=== PATIENT | female | born 1990 | race Caucasian/White ===

== ENCOUNTER → 2016-10-07 | Outpatient (CLI) | payer SELFPAY ==
--- NOTE | 2016-10-07 17:46 | RADIOLOGY REPORT (SQ) ---
EXAM DESCRIPTION: U/S [id number] TRNABD 1GES W/ODOP COMPLETED DATE/TIME: 10/07/2016 1:36 pm REASON FOR STUDY: ENCOUNTER FOR SUPERVISION OF OTHER NORMAL , 1ST TRIMESTER (Z34.81) Z34.81 ENCOUNTER FOR SUPRVSN OF NORMAL , FIRST TRIM COMPARISON: None. TECHNIQUE: Transabdominal static and realtime grayscale images acquired of the pelvis. Additional se lected spectral and color Doppler images recorded. All images stored on PACs. [facility] Not [facility]. Last menses 07/27/2016 LIMITATIONS: None. FINDINGS: FETUS: Living intrauterine . EGA: 11 weeks 1 day by crown-rump length GARLAND: 04/27/2017 FHR: 169 beats per minute. SUBCHORIONIC BLEED: No SIZE OF BLEED: Not applicable. UTERUS: No masses. No anomalies. Uterus is 16 x 10 x 8 cm in size CERVICAL LENGTH: 4 cm Closed. RIGHT ADNEXA: Normal ovary with normal vascular flow. Right ovary 2.3 x 1.6 x 1.6 cm in size No adnexal free fluid. No adnexal masses. LEFT ADNEXA: Normal ovary with normal vascular flow. Left ovary 3.3 x 2.5 x 2.1 cm in size with a 1. 8 cm cyst, possibly the corpus luteum No adnexal free fluid. No adnexal masses. FREE FLUID: None. OTHER: No other significant finding. IMPRESSION: LIVING INTRAUTERINE . EGA 11 weeks 1 day, cardiac activity 169 beats per minute Trimester of : First - 0 to 13 weeks. TECHNICAL DOCUMENTATION: JOB ID: [id number] [employer]- All Rights Reserved
== END ==
LOC: RAD 12:51
PROVIDERS: ATTEND Nurse Practitioner Women's Health
DX: Z34.81 Encounter for supervision of other normal pregnancy, first trimester (principal)
CPT/HCPCS: 76801

== ENCOUNTER → 2016-12-16 | Outpatient (CLI) | payer SELFPAY ==
--- NOTE | 2016-12-16 16:53 | RADIOLOGY REPORT (SQ) ---
EXAM DESCRIPTION: U/S OB 14+ TRNABD 1GES W/O DOP COMPLETED DATE/TIME: 12/16/2016 4:43 pm REASON FOR STUDY: ENCOUNTER FOR SUPERVISION OF ORTHER NOMAL , SECOND TRIMESTER Z34.82 ENCO UNTER FOR SUPRVSN OF NORMAL , SECOND TRI COMPARISON: 10/07/2016. TECHNIQUE: Static and Dynamic grayscale imaging performed of gravid uterus using transabdominal appr oach. Additional selected color Doppler and spectral images recorded. All stored on PACS. LIMITATIONS: None. FINDINGS: EGA: 21 week 3 day. GARLAND: 04/25/2017. EFW: 431 g. grams YENNY: Adequate amount. PLACENTA: Anterior. GRADE: I PRESENTATION: Cephalic. ANATOMY: HEART RATE: 128 beats per minute. FOUR CHAMBER HEART: Limited visualization. THREE VESSEL CORD: Yes. CORD INSERTION: Visualized. KIDNEYS AND BLADDER: Visualized. Appear normal. STOMACH: Visualized. Appears normal. SPINE: Normal as visualized. BRAIN AND LATERAL VENTRICLES: Visualized. Appear normal. OTHER: No other significant finding. Limited visualization of the upper extremities. MATERNAL ADNEXA: Maternal ovaries not visualized. CERVICAL LENGTH: Not adequately imaged. OTHER: No other significant finding. IMPRESSION: LIVING INTRAUTERINE . ESTIMATED GESTATIONAL AGE 21 WEEK 3 DAY. NO VISUALIZED ANOMALIES. Trimester of : Second trimester - 13 weeks 1 day to 27 weeks 6 days. TECHNICAL DOCUMENTATION: JOB ID: [id number] [employer]- All Rights Reserved
== END ==
LOC: RAD 15:50
PROVIDERS: ATTEND Nurse Practitioner Women's Health
DX: Z34.82 Encounter for supervision of other normal pregnancy, second trimester (principal)
CPT/HCPCS: 76805

== ENCOUNTER → 2017-02-11 | Outpatient (CLI) | payer SELFPAY ==
--- NOTE | 2017-02-11 14:48 | RADIOLOGY REPORT (SQ) ---
EXAM DESCRIPTION: U/S OB 14+ TRNABD 1GES W/O DOP COMPLETED DATE/TIME: 02/11/2017 2:01 pm REASON FOR STUDY: ENCOUNTER FOR SUPERVISION OF OTHER NORMAL , SECOND TRIMESTER Z34.82 ENCO UNTER FOR SUPRVSN OF NORMAL , SECOND TRI COMPARISON: 12/16/2016. TECHNIQUE: Static and Dynamic grayscale imaging performed of gravid uterus using transabdominal appr oach. Additional selected color Doppler and spectral images recorded. All stored on PACS. LIMITATIONS: None. FINDINGS: EGA: 31 week. GARLAND: 04/15/2017. EFW: 1,487 grams PERCENTILE: 70%. YENNY: Largest pocket 4.2 cm. PLACENTA: Anterior. GRADE: I PRESENTATION: Cephalic. ANATOMY: HEART RATE: 132 beats per minute. FOUR CHAMBER HEART: Visualized. THREE VESSEL CORD: Yes. CORD INSERTION: Visualized. KIDNEYS AND BLADDER: Visualized. Appear normal. STOMACH: Visualized. Appears normal. SPINE: Normal as visualized. BRAIN AND LATERAL VENTRICLES: Visualized. Appear normal. OTHER: No other significant finding. MATERNAL ADNEXA: Maternal ovaries not visualized. CERVICAL LENGTH: There is funneling at the internal os, measuring 1.8 by 5.9 cm. Distally the cervix is closed. The length of the closed segment of the cervix is 5.3 cm. OTHER: No other significant finding. IMPRESSION: LIVING INTRAUTERINE . ESTIMATED GESTATIONAL AGE 31 WEEK. NO VISUALIZED ANOMALIES. THERE IS FUNNELING AT THE INTERNAL OS DESCRIBED ABOVE. Trimester of : Third trimester - 28 weeks to delivery. TECHNICAL DOCUMENTATION: JOB ID: [id number] [employer]- All Rights Reserved
== END ==
LOC: RAD 12:50
PROVIDERS: ATTEND Nurse Practitioner Women's Health
DX: Z34.83 Encounter for supervision of other normal pregnancy, third trimester (principal)
CPT/HCPCS: 76805

== ENCOUNTER 2017-03-13 16:41 | Outpatient (CLI) | payer SELFPAY | END 2017-03-13 16:59 | disposition home or self-care (01) | LOC: LC 16:41 | PROVIDERS: ATTEND Obstetrics & Gynecology Gynecology | PROC: 4A1HXCZ Monitoring of Products of Conception, Cardiac Rate, External Approach (ICD-10-PCS; principal; 2017-03-13) | DX: O47.03 False labor before 37 completed weeks of gestation, third trimester (principal); Z3A.32 32 weeks gestation of pregnancy | CPT/HCPCS: 59025 ==

== ENCOUNTER 2017-03-23 09:44 | Outpatient (CLI) | payer SELFPAY ==
--- NOTE | 2017-03-23 09:46 | Non Stress Test Report ---
Non Stress Test Datetime Report Generated by CPN: 03/23/2017 09:46 DEMOGRAPHIC EGA NST: 32.4 INDICATION Indication for Study: Ordered by Provider VITAL SIGNS Temperature - NST: 98.0 Pulse - NST: 65 RESP - NST: 14 NBPSYS NST: 90 NBPDIA NST: 51 MONITORING Monitor Explained: Monitor Explained; Test Explained; Patient Verbalized Understanding Time on Monitor: 03/13/2017 15:58 Time off Monitor: 03/13/2017 16:59 NST Duration: 61 NST INTERVENTIONS NST Interventions: PO Hydration Physician Notified NST: J Heredia BABY A: [id number] BABY A Movement : Present Contraction Frequency : none FHR Baseline : 120 Accelerations : 15X15 Decelerations : None Variability : Moderate 6-25bpm NST Review: Meets Criteria for Reactive NST NST Review and Verified By : Timbo Marino RNC NST Results: Reactive NST REPORT Report Trigger: Send Report
[2017-03-23 10:36] LABS: APPEARANCE,URINE CLEAR; BILIRUBIN,URINE NEGATIVE (NEGATIVE); COLOR,URINE YELLOW; GLUCOSE, URINE NEGATIVE (NEGATIVE); KETONES,URINE NEGATIVE (NEGATIVE); LEUKOCYTE ESTERASE,URINE NEGATIVE (NEGATIVE); NITRITE,URINE NEGATIVE (NEGATIVE); PROTEIN,URINE NEGATIVE (NEGATIVE); URINE SPECIFIC GRAVITY 1.004; UROBILINOGEN,URINE NEGATIVE mg/dL (<2.0)
[2017-03-23 10:51] LABS: URINE AMPHETAMINES SCREEN NEGATIVE; URINE BARBITURATES SCREEN NEGATIVE; URINE BENZODIAZEPINES SCREEN NEGATIVE; URINE COCAINE SCREEN NEGATIVE; URINE MARIJUANA (THC) SCREEN NEGATIVE; URINE METHADONE SCREEN NEGATIVE; URINE PHENCYCLIDINE SCREEN NEGATIVE
== END 2017-03-23 10:46 | disposition home or self-care (01) ==
LOC: LC 09:44
PROVIDERS: ATTEND Obstetrics & Gynecology
PROC: 4A1HXCZ Monitoring of Products of Conception, Cardiac Rate, External Approach (ICD-10-PCS; principal; 2017-03-23)
DX: O47.03 False labor before 37 completed weeks of gestation, third trimester (principal); Z3A.34 34 weeks gestation of pregnancy; Z91.81 History of falling
CPT/HCPCS: 59025; 80307; 81001

== ENCOUNTER → 2017-04-09 | Outpatient (CLI) | payer SELFPAY ==
--- NOTE | 2017-04-09 16:21 | RADIOLOGY REPORT (SQ) ---
EXAM DESCRIPTION: U/S OB 14+ TRNABD 1GES W/O DOP COMPLETED DATE/TIME: 04/09/2017 3:40 pm REASON FOR STUDY: Z34.83 ENCOUNTER FOR SUPRVSN OF NORMAL , THIRD TRIMESTER Z34.83 ENCOUNTE R FOR SUPRVSN OF NORMAL , THIRD TRIM COMPARISON: OB ultrasound 02/11/2017 TECHNIQUE: Limited transabdominal grayscale ultrasound for evaluation of specific requested obstetri jorge parameters. LIMITATIONS: None. FINDINGS: CERVICAL LENGTH: Not visualized YENNY: 9.1 cm. FHR: 136 beats per minute. PRESENTATION: Cephalic. OTHER: Estimated weight 3575 g, 87th percentile. Estimated gestational age by measurements is 37 weeks 6 days, due date 04/24/2017 IMPRESSION: LIMITED OBSTETRICAL ULTRASOUND WITH MEASURED PARAMETERS DELINEATED ABOVE. Trimester of : Third trimester - 28 weeks to delivery. TECHNICAL DOCUMENTATION: JOB ID: [id number] [employer]- All Rights Reserved
== END ==
LOC: RAD 15:18
PROVIDERS: ATTEND Nurse Practitioner Women's Health
DX: Z34.83 Encounter for supervision of other normal pregnancy, third trimester (principal)
CPT/HCPCS: 76805

== ENCOUNTER 2017-05-01 09:26 | Inpatient (IN) | payer SELFPAY ==
--- NOTE | 2017-05-01 09:28 | Non Stress Test Report ---
Non Stress Test Datetime Report Generated by CPN: 05/01/2017 09:28 DEMOGRAPHIC EGA NST: 34.0 INDICATION Indication for Study: Other Indication for Study (NST) Other: Fall MONITORING Monitor Explained: Monitor Explained; Test Explained; Patient Verbalized Understanding Time on Monitor: 03/23/2017 10:06 Time off Monitor: 03/23/2017 10:38 NST Duration: 32 NST INTERVENTIONS NST Interventions: None Physician Notified NST: H BRIGITTE, CNM BABY A: [id number] BABY A Movement : Present Contraction Frequency : 0 FHR Baseline : 120 Accelerations : 15X15 Variability : Moderate 6-25bpm NST Review: Meets Criteria for Reactive NST NST Review and Verified By : LOUIE PEREZLUND, RN NST Results: Reactive NST REPORT Report Trigger: Send Report
[2017-05-01 10:06] LABS: APPEARANCE,URINE SLIGHTLY-CLOUDY; BILIRUBIN,URINE NEGATIVE (NEGATIVE); COLOR,URINE YELLOW; GLUCOSE, URINE NEGATIVE (NEGATIVE); KETONES,URINE 20 mg/dL (NEGATIVE); LEUKOCYTE ESTERASE,URINE NEGATIVE (NEGATIVE); NITRITE,URINE NEGATIVE (NEGATIVE); PROTEIN,URINE NEGATIVE (NEGATIVE); URINE SPECIFIC GRAVITY 1.016; UROBILINOGEN,URINE NEGATIVE mg/dL (<2.0)
[2017-05-01 10:24] LABS: URINE AMPHETAMINES SCREEN NEGATIVE; URINE BARBITURATES SCREEN NEGATIVE; URINE BENZODIAZEPINES SCREEN NEGATIVE; URINE COCAINE SCREEN NEGATIVE; URINE MARIJUANA (THC) SCREEN NEGATIVE; URINE METHADONE SCREEN NEGATIVE; URINE PHENCYCLIDINE SCREEN NEGATIVE
[2017-05-01] MEDS ORDERED: RINGERS SOLUTION,LACTATED 1,000 ML IV ONE (10:37)
[2017-05-01] MEDS ORDERED: RINGERS SOLUTION,LACTATED 1,000 ML IV PRN (10:37)
--- NOTE | 2017-05-01 11:53 | Admission Physical ---
Datetime Report Generated by CPN: 05/01/2017 11:53 CURRENT ADMISSION Chief Complaint: Uterine Contractions; Suspected Ruptured Membranes Indication for Induction: Not Applicable Admit Impression : Term, Intrauterine ; Active Labor; Ruptured Membranes Admit Plan: Admit to Unit; Initiate Labor Protocol ALLERGIES Medication Allergies: No Known Allergies (05/01/2017) PHYSICAL EXAM General: Normal HEENT: Normal Neurologic: Normal Thyroid: Deferred Heart: Normal Lungs: Normal Breast: Deferred Back: Normal Abdomen: Normal Genitourinary Exam: Normal Extremities: Normal DTRs: Normal Pelvic Type: Adequate Vital Signs: Reviewed VAGINAL EXAM Dilatation: 3 Effacement: 60 Station: -3 Contraction Comments: irreg MEMBRANES Membranes: Ruptured Amniotic Fluid Color: Clear FETUS A EGA: 39.4 Monitoring: External US FHR- Baseline: 120 Variability: Moderate 6-25bpm Accelerations: 15X15 Decelerations: None FHR Category: Category I Admit Comment: 26yo at 39+4ega with pelvis proven to 9#11oz. EFW approx 2wks ago 8#. Pt reports SROM at 0330 this am with clear fluid. Continued leakage of fluid with gross SROM - pooling and fluid with positive valsalva. + blood unable to perform amnisure. Fern negative. Due to copious fluid continually coming from cervix do not agree with fern negative. Admit for SROM/PROM. Will begin pitocin when arrives. GBS negative. INFORMED CONSENT Informed Consent Obtained: Vaginal Delivery; Risks, Benefits and Alternatives Discussed Signature: with User ID: [email or web address]
[2017-05-01 11:54] LABS: ABSOLUTE LYMPHOCYTES (AUTO) 1.5 10^3/uL (0.5-4.7); ABSOLUTE MONOCYTES (AUTO) 0.6 10^3/uL (0.1-1.4); ABSOLUTE NEUT (AUTO) 6.2 10^3/uL (1.7-8.2); BASOPHILS % (AUTO) 0.2 % (0-2); EOSINOPHILS % (AUTO) 0.5 % (0-6); HEMOGLOBIN 12.4 g/dL (12.0-15.5); LYMPHOCYTES % (AUTO) 18.3 % (13-45); MEAN CORPUSCULAR HEMOGLOBIN 30.4 pg (27.0-33.4); MEAN CORPUSCULAR HGB CONC 34.6 g/dL (32.0-36.0); MEAN CORPUSCULAR VOLUME 88 fl (80-97); MONOCYTES % (AUTO) 6.7 % (3-13); PLATELET COUNT 133 10^3/uL (150-450); RED BLOOD COUNT 4.09 10^6/uL (3.72-5.28); RED CELL DISTRIBUTION WIDTH 13.4 % (11.5-14.0); SEGMENTED NEUTROPHILS % (AUTO) 74.3 % (42-78); TOTAL CELLS COUNTED % (AUTO) 100 %; WHITE BLOOD COUNT 8.3 10^3/uL (4.0-10.5)
[2017-05-01] MEDS ORDERED: OXYTOCIN/NORMAL SALINE 20 UNIT/1,000 ML RTUINJ ONE (12:39)
[2017-05-01] MEDS ORDERED: OXYTOCIN/NORMAL SALINE 20 UNIT/1,000 ML RTUINJ IV PRN ×2 (12:52→16:36)
--- NOTE | 2017-05-01 13:39 | Admission Physical ---
Datetime Report Generated by CPN: 05/01/2017 13:39 CURRENT ADMISSION Admit Date/Time: 05/01/2017 10:35 Admit Date/Time: 05/01/2017 09:26 Admit Date/Time: 03/23/2017 09:44 Admit Date/Time: 03/13/2017 16:41 Admit Date/Time: 03/13/2017 00:00 Chief Complaint: Uterine Contractions; Suspected Ruptured Membranes Indication for Induction: Not Applicable Admit Impression : Term, Intrauterine ; Active Labor; Ruptured Membranes Admit Plan: Admit to Unit; Initiate Labor Protocol ALLERGIES Medication Allergies: No Medication Allergies: No Known Allergies (05/01/2017) Medication Allergies: No Known Allergies (03/23/2017) Medication Allergies: No Known Allergies (09/16/2013) Latex: No Latex Allergies OBSTETRICAL HISTORY EDC: 05/04/2017 00:00 : 4 Para: 2 Term: 2 : 0 SAB: 1 IAB: 0 Ectopic: 0 Livin Cesareans: 0 VBACs: 0 Multiple Births: 0 Gestational Diabetes: No Rh Sensitization: No Incompetent Cervix: No KENYON: No Infertility: No ART Treatment: No Uterine Anomaly: No IUGR: No Hx Previous C/S: No Macrosomia: No Hx Loss/Stillborn: No PIH: No Hx : No Depression/PP Depression: No PTL/PROM: No Post Hemorrhage: No Current Procedures: Ultrasound Obstetrical History Comments: 2009 baby boy 40 weeks 2013 baby boy 41 weeks 2015 SAB 10 weeks 2017 current SEE RECORDS Alcohol: No Marijuana : No Cocaine: No Other Illicit Drugs: No Cigarettes: Never Smoker. [id number] MEDICAL HISTORY Diabetes: No Blood Transfusion: No Pulmonary Disease (Asthma, TB): No Breast Disease: No Hypertension: No Hand Molder Surgery: No Heart Disease: No Hosp/Surgery: Yes Autoimmune Disorder: No Anesthetic Complications: No Kidney Disease: No Abnormal Pap Smear: No Neuro/Epilepsy: No Psychiatric Disorders: No Other Medical Diseases: No Hepatitis/Liver Disease: No Significant Family History: No Varicosities/Phlebitis: No Trauma/Violence : No Thyroid Dysfunction: No Medical History Comments: 1997 right arm surgery, childbirth INFECTIOUS HISTORY Gonorrhea: No Genital Herpes: No Chlamydia: No Tuberculosis: No Syphilis: No Hepatitis: No HIV/AIDS Exposure: No Rash or Viral Illness: No HPV: No PHYSICAL EXAM General: Normal HEENT: Normal Neurologic: Normal Thyroid: Deferred Heart: Normal Lungs: Normal Breast: Deferred Back: Normal Abdomen: Normal Genitourinary Exam: Normal Extremities: Normal DTRs: Normal Pelvic Type: Adequate Vital Signs: Reviewed VAGINAL EXAM Dilatation: 3 Effacement: 60 Station: -3 Contraction Comments: irreg MEMBRANES Membranes: Ruptured Amniotic Fluid Color: Clear FETUS A EGA: 39.4 Monitoring: External US FHR- Baseline: 120 Variability: Moderate 6-25bpm Accelerations: 15X15 Decelerations: None FHR Category: Category I Admit Comment: 26yo at 39+4ega with pelvis proven to 9#11oz. EFW approx 2wks ago 8#. Pt reports SROM at 0330 this am with clear fluid. Continued leakage of fluid with gross SROM - pooling and fluid with positive valsalva. + blood unable to perform amnisure. Fern negative. Due to copious fluid continually coming from cervix do not agree with fern negative. Admit for SROM/PROM. Will begin pitocin when arrives. GBS negative. PLANS FOR LABOR AND DELIVERY Labor and Delivery: None Pain Management: Natural Feeding Preference: Breast Benefit of Breast Feed Discussed: Yes INFORMED CONSENT Informed Consent Obtained: Vaginal Delivery; Risks, Benefits and Alternatives Discussed Signature: with User ID: [email or web address]
[2017-05-01] MEDS ORDERED: EPHEDRINE SULFATE INJ 50 MG/1 ML AMPULE ONE (13:57)
[2017-05-01] MEDS ORDERED: FENTANYL CITRATE INJ/PF 100 MCG/2 ML AMPUL ONE (13:57)
[2017-05-01] MEDS ORDERED: PHENYLEPHRINE HCL INJ/PF 10 MG/1 ML SDV ONE (13:58)
[2017-05-01] MEDS ORDERED: LIDOCAINE 1% INJ-PF (10 MG/ML) 30 ML SDV ONE (13:58)
[2017-05-01] MEDS ORDERED: MISOPROSTOL 0.2 MG TABLET ONE (13:58)
[2017-05-01] MEDS ORDERED: BUPIVACAINE HCL 0.25 % INJ/PF (2.5 MG/1 ML) 30 ML VIAL ONE (13:58)
[2017-05-01] MEDS ORDERED: FENTANYL/BUPIVACAINE/NS/PF 200 MCG/100 ML RTUINJ EPI ONE (13:58)
--- NOTE | 2017-05-01 15:36 | L&D Progress Notes ---
PROGRESS NOTES Datetime Report Generated by CPN: 05/01/2017 15:36 PROGRESS NOTE Impression: Normal Progression of Labor Plan: Continue Present Management; Augmentation Informed Consent Obtained: Vaginal Delivery; Risks, Benefits and Alternatives Discussed Comment: comfortable with epidural. making appropriate cervical change. pitocin infusing at 4mu/min. continue current plan of care, anticipate VAGINAL EXAM Dilatation: 5 Dilatation: 3 Effacement: 80 Effacement: 60 Station: -2 Station: -3 Contractions: Q3 mins Contractions: irreg MEMBRANES Membranes: Ruptured Membranes: Ruptured Amniotic Fluid Color: Clear Amniotic Fluid Color: Clear FETUS A FHR - Baseline: 120 Monitoring: External US Variability: Moderate 6-25bpm Accelerations: 15X15 Decelerations: Early SIGNATURE SIGNATURE: ,[id number];[id number] SIGNATURE: ,[id number];14,[id number] SIGNATURE: ,[id number] SIGNATURE: ,[id number] Assignment: Myrtle Peres MD Signature: with User ID: [email or web address] : with User ID: [email or web address]
[2017-05-01] MEDS ORDERED: BENZOCAINE/MENTHOL AEROSOL SPRAY 56 ML TOP PRN (16:36)
[2017-05-01] MEDS ORDERED: DIPH/PERTUSS(ACELL)/TETANUS VAC/PF 0.5 ML SYR (>=10YO) IM PRN (16:36)
[2017-05-01] MEDS ORDERED: DIBUCAINE 1% OINTMENT 28 GM TP PRN (16:36)
[2017-05-01] MEDS ORDERED: ZOLPIDEM TARTRATE 5 MG TABLET PO PRN (16:36)
[2017-05-01] MEDS ORDERED: MEASLES,MUMPS&RUBELLA VACC/PF 0.5 ML VIAL SUBCUT PRN (16:36)
[2017-05-01] MEDS ORDERED: ACETAMINOPHEN WITH CODEINE #3 TABLET PO PRN ×2 (16:36)
[2017-05-01] MEDS: FERROUS SULFATE 325 MG TABLET PO SCH (18:00)
[2017-05-01] MEDS: DOCUSATE SODIUM 100 MG CAPSULE PO SCH (18:00)
--- NOTE | 2017-05-01 18:54 | Delivery Summary ---
Del Sum A-C Datetime Report Generated by CPN: 05/01/2017 18:54 DELIVERY PERSONNEL DELIVERY PERSONNEL: [id number] Delivery Doctor:: Leni Ramirez CNM Nurse Drill Foreman Certified:: Leni Ramirez CNM Labor and Delivery Nurse:: CLARICE Landry Labor and Delivery Nurse:: CLARICE Hancock Nursery Nurse:: Edyta Zamora RN MATERNAL INFORMATION Delivery Anesthesia: Epidural Medications After Delivery: Pitocin Bolus-Please Comment Meds After Delivery Comment: Pitocin 20 units in 1000 ml nss open for bolus Estimated Blood Loss (ml): 100 Maternal Complications: None Provider Comments: of viable male , head and posterior arm delivered without difficulty, shoulders and body delivered with ease, with spontaneous cry and respirations, to matneral abdomen, skin to skin, cord clamped x2 after 2 min delay, cut free by pts , spontaneous delivery of placenta appears intact, via darby mechanism, 3VC, vagina and perineum appears intact, 3vc, hemostasis acheived with external fundal massage and IV pitocin. Mother and infant in stable condition, routine pp care. LABOR SUMMARY EDC: 05/04/2017 00:00 No. Babies in Womb: 1 Attempted: No Labor Anesthesia: Epidural LABOR INFORMATION Reason for Induction: Not Applicable Onset of Labor: 05/01/2017 14:52 Complete Dilatation: 05/01/2017 16:09 Oxytocin: Augmentation Group B Beta Strep: negative Steroids Given: None Reason Steroids Not Administered: Not Applicable MEMBRANES Membranes Rupture Method: Spontaneous Rupture of Membranes: 05/01/2017 02:30 Length of Rupture (hr): 13.72 Amniotic Fluid Color: Clear Amniotic Fluid Amount: Small Amniotic Fluid Odor: Normal STAGES OF LABOR Stage 1 hr: 1 Stage 1 min: 17 Stage 2 hr: 0 Stage 2 min: 4 Stage 3 hr: 0 Stage 3 min: 4 Total Time in Labor hr: 1 Total Time in Labor min: 25 VAGINAL DELIVERY Episiotomy: None Laceration #1: None Laceration Extension #1: N/A Laceration Repair: Not Applicable Sponge Count Correct: N/A Sharps Count Correct: N/A CSECTION DELIVERY Primary Indication: N/A Secondary Indication: N/A CSection Incidence: N/A Labor: N/A Elective: N/A CSection Incision: N/A BABY A INFORMATION Delivery Date/Time: 05/01/2017 16:13 Method of Delivery: Vaginal Born in Route : No : N/A Forceps: N/A Vacuum Extraction: N/A Shoulder Dystocia : No PRESENTATION/POSITION BABY A Presentation: Cephalic Cephalic Presentation: Vertex Vertex Position: Left Occipital Anterior Breech Presentation: N/A PLACENTA INFORMATION BABY A Placenta Delivery Time : 05/01/2017 16:17 Placenta Method of Delivery: Spontaneous Placenta Status: Delivered SCORES BABY A Heart Rate 1 min: >100 bpm Resp Effort 1 min: Good Cry Reflex Irritability 1 min: Cough or Sneeze or Pulls Away Muscle Tone 1 min: Active Motion Color 1 min: Blue/Pale Resuscitation Effort 1 min: Tactile Stimulation SCORE 1 MIN: 8 Heart Rate 5 min: >100 bpm Resp Effort 5 min: Good Cry Reflex Irritability 5 min: Cough or Sneeze or Pulls Away Muscle Tone 5 min: Active Motion Color 5 min: Body [place], Extremities Blue Resuscitation Effort 5 min: N/A SCORE 5 MIN: 9 Resuscitation Effort 10 min: N/A INFANT INFORMATION BABY A Gestational Age at Delivery: 39.4 Gestational Status: Full Term- 39- 40.6 Weeks Infant Outcome : Liveborn Condition : Stable Sex: Male IDENTIFICATION BABY A Infant Verification Date/Time: 05/01/2017 16:52 ID Band Number: [id number] Mother's Name Verified: Yes Infant RN Verifying : K Jose RNC/A Sun RN WEIGHT/LENGTH BABY A Infant Birthweight (gm): 4285 Infant Weight (lb): 9 Weight (oz): 7 Length (in): 21.00 Infant Length (cm): 53.34 CORD INFORMATION BABY A No. Cord Vessels: 3 Nuchal Cord : N/A Cord Blood Taken: Yes-For Eval (Mom's Blood Type - or O+) Suction: None ASSESSMENT BABY A Complications: None Physical Findings at Delivery: Within Normal Limits Respirations: Appears Normal Skin to Skin: Yes Home Agent/ALS Called : No Care By: Edyta Zamora RNC Transferred To: Remains with Mother BABY B INFORMATION : N/A SIGNATURES Assignment: Myrtle Peres MD Signature: with User ID: [email or web address] : with User ID: [email or web address] : I was personally available for consultation and serving as supervising physician for the MLP.
[2017-05-01] MEDS: IBUPROFEN 800 MG TABLET PO SCH (22:49)
[2017-05-02] MEDS: IBUPROFEN 800 MG TABLET PO SCH ×3 (06:53→22:55)
[2017-05-02 08:41] LABS: HEMATOCRIT 34.5 % (36.0-47.0); HEMOGLOBIN 11.8 g/dL (12.0-15.5); MEAN CORPUSCULAR HEMOGLOBIN 30.4 pg (27.0-33.4); MEAN CORPUSCULAR HGB CONC 34.3 g/dL (32.0-36.0); MEAN CORPUSCULAR VOLUME 89 fl (80-97); PLATELET COUNT 122 10^3/uL (150-450); RED BLOOD COUNT 3.89 10^6/uL (3.72-5.28); RED CELL DISTRIBUTION WIDTH 13.8 % (11.5-14.0); WHITE BLOOD COUNT 9.2 10^3/uL (4.0-10.5)
[2017-05-02] MEDS: SENNOSIDES/DOCUSATE 8.6-50 MG 1 EACH TABLET PO SCH (09:34)
[2017-05-02] MEDS: PRENATAL VITAMIN W DHA CAPSULE PO SCH (09:34)
[2017-05-02] MEDS: DOCUSATE SODIUM 100 MG CAPSULE PO SCH ×2 (09:34→17:06)
[2017-05-02] MEDS: FERROUS SULFATE 325 MG TABLET PO SCH ×2 (09:34→17:06)
--- NOTE | 2017-05-02 11:10 | PDOC PROGRESS REPORT ---
Subjective-OB Progress Note for:: 05/02/17 Subjective: tolerating diet without nausea, bleeding slowing, pain controlled with current meds. no needs expressed Physical Exam (OB) Vital Signs: Temp Pulse Resp BP Pulse Ox 97.7 F 58 L 16 115/72 99 05/02/17 07:38 05/02/17 07:38 05/02/17 07:38 05/02/17 07:38 05/02/17 07:38 Intake & Output 05/01/17 05/02/17 05/03/17 06:59 06:59 06:59 Intake Total 240 Balance 240 Weight 97.3 kg - Abdomen Description: Soft Hernia Present: No Fundal Description: Firm, Midline Fundal Height: u/u - u/2 - Abdominal Tenderness: Nontender - Extremities Lower extremities: Claudia's sign - neg Calf: Nontender Objective-Diagnostic Laboratory: 05/02/17 07:30 05/01/17 05/01/17 05/02/17 11:29 11:29 07:30 WBC 8.3 9.2 RBC 4.09 3.89 Hgb 12.4 11.8 L Hct 36.0 34.5 L MCV 88 89 MCH 30.4 30.4 MCHC 34.6 34.3 RDW 13.4 13.8 Plt Count 133 L 122 L Seg Neutrophils % 74.3 Lymphocytes % 18.3 Monocytes % 6.7 Eosinophils % 0.5 Basophils % 0.2 Absolute Neutrophils 6.2 Absolute Lymphocytes 1.5 Absolute Monocytes 0.6 Absolute Eosinophils 0.0 Absolute Basophils 0.0 Blood Type O POSITIVE Antibody Screen NEGATIVE Assessment and Plan(PN) - Assessment and Plan (1) Delivery normal Is this a current diagnosis for this admission?: Yes - Time Spent with Patient Time with patient: Less than 15 minutes Medications reviewed and adjusted accordingly: Yes - Disposition Anticipated Discharge: Home Within: within 24 hours
[2017-05-03] MEDS: IBUPROFEN 800 MG TABLET PO SCH ×3 (06:00→22:10)
[2017-05-03] MEDS: PRENATAL VITAMIN W DHA CAPSULE PO SCH (09:09)
[2017-05-03] MEDS: SENNOSIDES/DOCUSATE 8.6-50 MG 1 EACH TABLET PO SCH (09:09)
[2017-05-03] MEDS: FERROUS SULFATE 325 MG TABLET PO SCH ×2 (09:09→17:01)
[2017-05-03] MEDS: DOCUSATE SODIUM 100 MG CAPSULE PO SCH ×2 (09:09→17:01)
--- NOTE | 2017-05-03 10:31 | PDOC PROGRESS REPORT ---
Subjective-OB Progress Note for:: 05/03/17 Subjective: tolerating diet, bleeding minimal, pain controlled, well. no needs expressed Physical Exam (OB) Vital Signs: Temp Pulse Resp BP Pulse Ox 97.8 F 66 16 109/64 98 05/03/17 07:45 05/03/17 07:45 05/03/17 07:45 05/03/17 07:37 05/03/17 07:45 Intake & Output 05/02/17 05/03/17 05/04/17 06:59 06:59 06:59 Intake Total 240 240 Balance 240 240 Weight 97.3 kg - Abdomen Description: Tender, Soft, Round Hernia Present: No Fundal Description: Firm, Midline Fundal Height: u/u - u/2 - Abdominal Tenderness: Nontender - Extremities Lower extremities: Claudia's sign - neg Calf: Normal, Nontender Objective-Diagnostic Laboratory: 05/02/17 07:30 Assessment and Plan(PN) - Assessment and Plan (1) Delivery normal Is this a current diagnosis for this admission?: Yes - Time Spent with Patient Time with patient: Less than 15 minutes Medications reviewed and adjusted accordingly: Yes - Disposition Anticipated Discharge: Home Within: within 24 hours - c/w Dr Peres, PLT 122, will recheck in AM
[2017-05-04] MEDS: IBUPROFEN 800 MG TABLET PO SCH ×2 (05:15→13:53)
[2017-05-04 07:17] LABS: HEMATOCRIT 36.5 % (36.0-47.0); HEMOGLOBIN 12.4 g/dL (12.0-15.5); MEAN CORPUSCULAR HEMOGLOBIN 30.3 pg (27.0-33.4); MEAN CORPUSCULAR HGB CONC 33.9 g/dL (32.0-36.0); MEAN CORPUSCULAR VOLUME 89 fl (80-97); PLATELET COUNT 153 10^3/uL (150-450); RED BLOOD COUNT 4.08 10^6/uL (3.72-5.28); RED CELL DISTRIBUTION WIDTH 13.8 % (11.5-14.0); WHITE BLOOD COUNT 6.5 10^3/uL (4.0-10.5)
[2017-05-04 08:42] VITALS: BP 114/72
--- NOTE | 2017-05-04 09:28 | PDOC DISCHARGE SUMMARY ---
Final Diagnosis Discharge Date: 05/04/17 - Final Diagnosis (1) Thrombocytopenia Is this a current diagnosis for this admission?: Yes (2) Delivery normal Is this a current diagnosis for this admission?: Yes (3) Is this a current diagnosis for this admission?: Yes Discharge Data - Discharge Medication Prescriptions: Ibuprofen [Motrin 800 mg Tablet] 800 mg PO Q8HP PRN #60 tablet PRN Reason: Abdominal Cramping Home Medications: Prenat 115/Iron Fum/Folic/Dss [ 19 Tablet] 1 tab PO DAILY 09/16/13 Ibuprofen [Motrin 800 mg Tablet] 800 mg PO Q8HP PRN #60 tablet 05/04/17 Reason(s) for Admission: PROM Procedures: Ultrasound Intrapartum Procedure(s): Spontaneous Vaginal Delivery - Diagnosis Test Laboratory: Temp Pulse Resp BP Pulse Ox 98.1 F 64 20 114/72 100 05/04/17 08:16 05/04/17 08:16 05/04/17 08:16 05/04/17 08:16 05/04/17 08:16 05/01/17 05/01/17 05/02/17 09:33 11:29 07:30 RBC 4.09 3.89 Hgb 12.4 11.8 L Hct 36.0 34.5 L Urine Opiates Screen NEGATIVE 05/04/17 07:05 RBC 4.08 Hgb 12.4 Hct 36.5 Urine Opiates Screen - Discharge information/Instructions Discharge Activity: Activity As Tolerated, Balance Activity w/Rest, No Lifting Over 10 Pounds, No Lifting/Push/Pulling, Pelvic Rest, No tub bath, Walk Frequently Discharge Diet: Regular Disposition: HOME, SELF-CARE Follow up with: [facility] in: 4, Weeks
[2017-05-04] MEDS: FERROUS SULFATE 325 MG TABLET PO SCH (10:04)
[2017-05-04] MEDS: PRENATAL VITAMIN W DHA CAPSULE PO SCH (10:05)
[2017-05-04] MEDS: DOCUSATE SODIUM 100 MG CAPSULE PO SCH (10:05)
[2017-05-04] MEDS: SENNOSIDES/DOCUSATE 8.6-50 MG 1 EACH TABLET PO SCH (10:05)
== END 2017-05-04 14:19 | disposition home or self-care (01) | DRG 775 ==
LOC: LC 09:26 → LR 10:35 → 2S 20:37
PROVIDERS: ADMIT Student in an Organized Health Care Education/Training Program; ATTEND Student in an Organized Health Care Education/Training Program
PROC: 10E0XZZ Delivery of Products of Conception, External Approach (ICD-10-PCS; principal; 2017-05-01)
DX: O99.12 Other diseases of the blood and blood-forming organs and certain disorders involving the immune mechanism complicating childbirth (principal); D69.6 Thrombocytopenia, unspecified; Z3A.39 39 weeks gestation of pregnancy; Z37.0 Single live birth
CPT/HCPCS: 36415; 80307; 81005; 85025; 85027; 86592; 86850; 86900; 86901; J2370; J2590; J3010; J3490; Q0114

== ENCOUNTER 2019-02-25 17:30 | Emergency (ER) | payer BC, MEDICAID ==
--- NOTE | 2019-02-25 17:49 | ER Document Report ---
ED Medical Screen (RME) - General Chief Complaint: Chest Pain Stated Complaint: CHEST PAIN, LEFT ARM TINGLING Time Seen by Provider: 02/25/19 17:46 Primary Care Provider: ANUJ RNAGEL NP [Primary Care Provider] - Follow up as needed TRAVEL OUTSIDE OF THE [place] IN LAST 30 DAYS: No - HPI Notes: 02/25/19 17:48 Patient is a 28-year-old female no significant past medical history aside from migraines and a family history of cardiac by [facility] at age 50 (father) who presents complaining of left-sided chest pain that is been intermittent since 430 today. Patient states that it will take her breath away on occasion and she does feel some tingling in her left wrist/forearm area. Denies drug allergies. No fever. No history of DVT/PE. I have treated and performed a rapid initial assessment of this patient. A comprehensive ED assessment and evaluation of the patient, analysis of test results and completion of medical decision making process will be conducted by additional ED providers. PHYSICAL EXAMINATION: GENERAL: Well-appearing, well-nourished and in no acute distress. A&Ox4. Answers questions appropriately. LUNGS: Breath sounds clear to auscultation bilaterally and equal. No wheezes rales or rhonchi. HEART: Regular rate and rhythm without murmurs, rubs, gallops. - Related Data Allergies/Adverse Reactions: No Known Allergies Allergy (Verified 02/25/19 17:46) Physical Exam - Vital signs Vitals: Temp Pulse Resp BP Pulse Ox 97.7 F 70 16 120/87 H 100 02/25/19 17:42 02/25/19 17:42 02/25/19 17:42 02/25/19 17:42 02/25/19 17:42 Course - Vital Signs Vital signs: Temp Pulse Resp BP Pulse Ox 97.7 F 70 16 120/87 H 100 02/25/19 17:42 02/25/19 17:42 02/25/19 17:42 02/25/19 17:42 02/25/19 17:42 Doctor's Discharge - Discharge Referrals: ANUJ RANGEL NP [Primary Care Provider] - Follow up as needed
--- NOTE | 2019-02-25 18:19 | RADIOLOGY REPORT (SQ) ---
EXAM DESCRIPTION: CHEST 2 VIEWS COMPLETED DATE/TIME: 02/25/2019 5:02 pm REASON FOR STUDY: cp COMPARISON: None. EXAM PARAMETERS: NUMBER OF VIEWS: two views TECHNIQUE: Digital Frontal and Lateral radiographic views of the chest acquired. RADIATION DOSE: NA LIMITATIONS: none FINDINGS: LUNGS AND PLEURA: No opacities, masses or pneumothorax. No pleural effusion. MEDIASTINUM AND HILAR STRUCTURES: No masses or contour abnormalities. HEART AND VASCULAR STRUCTURES: Heart normal size. No evidence for failure. BONES: No acute findings. HARDWARE: None in the chest. OTHER: No other significant finding. IMPRESSION: NO ACUTE RADIOGRAPHIC FINDING IN THE CHEST. TECHNICAL DOCUMENTATION: JOB ID: [id number] [email or web address]- All Rights Reserved Reading location - IP/workstation name: [email or web address]
[2019-02-25 18:37] LABS: ABSOLUTE EOSINOPHILS # (AUTO) 0.1 10^3/uL (0.0-0.6); ABSOLUTE LYMPHOCYTES (AUTO) 2.3 10^3/uL (0.5-4.7); ABSOLUTE MONOCYTES (AUTO) 0.5 10^3/uL (0.1-1.4); ABSOLUTE NEUT (AUTO) 3.6 10^3/uL (1.7-8.2); BASOPHILS % (AUTO) 0.5 % (0-2); EOSINOPHILS % (AUTO) 2.2 % (0-6); HEMOGLOBIN 13.9 g/dL (12.0-15.5); LYMPHOCYTES % (AUTO) 35.3 % (13-45); MEAN CORPUSCULAR HGB CONC 34.7 g/dL (32.0-36.0); MEAN CORPUSCULAR VOLUME 87 fl (80-97); MONOCYTES % (AUTO) 7.1 % (3-13); PLATELET COUNT 218 10^3/uL (150-450); RED BLOOD COUNT 4.62 10^6/uL (3.72-5.28); RED CELL DISTRIBUTION WIDTH 12.6 % (11.5-14.0); SEGMENTED NEUTROPHILS % (AUTO) 54.9 % (42-78); TOTAL CELLS COUNTED % (AUTO) 100 %; WHITE BLOOD COUNT 6.5 10^3/uL (4.0-10.5)
[2019-02-25 18:43] LABS: APPEARANCE,URINE SLIGHTLY-CLOUDY; BILIRUBIN,URINE NEGATIVE (NEGATIVE); COLOR,URINE YELLOW; GLUCOSE, URINE NEGATIVE (NEGATIVE); KETONES,URINE NEGATIVE (NEGATIVE); PROTEIN,URINE NEGATIVE (NEGATIVE); URINE SPECIFIC GRAVITY 1.009; UROBILINOGEN,URINE NEGATIVE mg/dL (<2.0)
[2019-02-25 18:57] LABS: ALBUMIN 4.5 g/dL (3.5-5.0); ALKALINE PHOSPHATASE 47 U/L (38-126); ANION GAP 8 (5-19); ASPARTATE AMINO TRANSFERASE 24 U/L (14-36); BILIRUBIN,DIRECT 0.1 mg/dL (0.0-0.4); BILIRUBIN,TOTAL 0.8 mg/dL (0.2-1.3); BLOOD UREA NITROGEN 11 mg/dL (7-20); CALCIUM 9.6 mg/dL (8.4-10.2); CARBON DIOXIDE 28 mmol/L (22-30); CHLORIDE 104 mmol/L (98-107); GLUCOSE 83 mg/dL (75-110); POTASSIUM 4.5 mmol/L (3.6-5.0); TOTAL PROTEIN 7.4 g/dL (6.3-8.2)
--- NOTE | 2019-02-25 20:16 | ER Document Report ---
ED General - General Chief Complaint: Chest Pain Stated Complaint: CHEST PAIN, LEFT ARM TINGLING Time Seen by Provider: 02/25/19 17:46 Primary Care Provider: ANUJ ARNGEL NP [NO LOCAL MD] - Follow up as needed Notes: 28-year-old female who presents emergency department complaining of a left-sided chest pain that was grabbing in nature around 1615 this afternoon. States that it onset while she was doing a small amount of walking but was not overly exerting herself. After she sat down she became diaphoretic and felt clammy but did not have any shortness of breath. Patient states that she did then develop left hand tingling. Over the past several hours her pain is actually resolved and she no longer has any tingling or diaphoresis either. She did take 325 mg of aspirin at 530 this afternoon. Patient's largest concern is that her dad from a heart attack at 50 years old. Patient denies any risk factors for pulmonary embolism, does not take any control pills, hormones, recent long trips, surgery or personal or family history of DVT or PE. TRAVEL OUTSIDE OF THE [place] IN LAST 30 DAYS: No - Related Data Allergies/Adverse Reactions: No Known Allergies Allergy (Verified 02/25/19 17:46) Past Medical History - General Information source: Patient - Social History Smoking Status: Never Smoker Frequency of alcohol use: Rare Drug Abuse: None Family History: CAD - Dad with RI at 50. Patient has suicidal ideation: No Patient has homicidal ideation: No Review of Systems - Review of Systems Constitutional: See HPI, Diaphoresis EENT: No symptoms reported Cardiovascular: See HPI Respiratory: No symptoms reported Neurological/Psychological: See HPI -: Yes All other systems reviewed and negative Physical Exam - Vital signs Vitals: Temp Pulse Resp BP Pulse Ox 97.7 F 70 16 120/87 H 100 02/25/19 17:42 02/25/19 17:42 02/25/19 17:42 02/25/19 17:42 02/25/19 17:42 Interpretation: Normal - Notes Notes: GENERAL: Alert, interacts well. No acute distress. HEAD: Normocephalic, atraumatic EYES: Pupils equal, round and reactive to light, extraocular movements intact. ENT: Oral mucosa moist, tongue midline. NECK: Full range of motion, supple, trachea midline. LUNGS: Clear to auscultation bilaterally, no wheezes, rales or rhonchi, no respiratory distress. HEART: Regular rate and rhythm, no murmurs, gallops, rubs. ABDOMEN: Soft, nontender, nondistended, bowel sounds present in all 4 quadrants. EXTREMITIES: Moves all 4 extremities spontaneously, no edema, radial and dorsalis pedis pulses 2/4 bilaterally. No cyanosis. NEUROLOGICAL: Alert and oriented x3, normal speech. PSYCH: Normal mood, normal affect. SKIN: Warm, Dry, normal turgor, no rashes or lesions noted. Course - Re-evaluation Re-evalutation: 02/25/19 23:35 CBC unremarkable, CMP unremarkable, troponin negative x2, urinalysis unremarkable, test negative, chest x-ray shows no acute process, EKG is nonischemic. Uncertain what is causing this patient's intermittent pain however it does not appear to be cardiac in nature. Patient will be discharged home, encouraged to follow-up with primary care physician as an outpatient. - Vital Signs Vital signs: Temp Pulse Resp BP Pulse Ox 97.7 F 65 16 113/60 100 02/25/19 17:42 02/25/19 23:00 02/25/19 23:00 02/25/19 23:00 02/25/19 23:00 - Laboratory Result Diagrams: 02/25/19 18:16 02/25/19 18:16 - EKG Interpretation by Me Additional EKG results interpreted by me: 02/25/19 20:16 EKG shows sinus rhythm at a rate of 65, normal axis, normal intervals, no ST segment elevations or depressions, no T wave inversions per my interpretation. Discharge - Discharge Clinical Impression: Left-sided chest pain Condition: Stable Disposition: HOME, SELF-CARE Instructions: Chest Pain of Unclear Cause ([facility]) Referrals: ANUJ RANGEL, ALETA [NO LOCAL MD] - Follow up as needed
--- NOTE | 2019-02-25 20:57 | EKG REPORT ---
SEVERITY:- BORDERLINE ECG - SINUS RHYTHM : Confirmed by: River Segovia 25-Feb-2019 20:56:28
[2019-02-25 23:02] VITALS: BP 113/60
== END 2019-02-26 00:46 | disposition home or self-care (01) ==
LOC: ER 17:30
DX: R07.9 Chest pain, unspecified (principal); R61 Generalized hyperhidrosis; R20.2 Paresthesia of skin; Z82.49 Family history of ischemic heart disease and other diseases of the circulatory system
CPT/HCPCS: 36415; 71046; 80053; 81001; 81025; 84484; 85025; 93005; 93010; 99285